=== PATIENT | female | born 1945 | race Caucasian/White ===

== ENCOUNTER 2021-08-26 18:17 | Observation (INO) | payer OTHER ==
[2021-08-26 19:10] VITALS: BMI 25.9
[2021-08-26] MEDS: DIPHENHYDRAMINE 50 MG/ML VIAL IV SCH (20:00)
[2021-08-26] MEDS: METOPROLOL TAR 50 MG TAB PO SCH (20:10)
[2021-08-26] MEDS: METHYLPREDNISOLONE 125 MG INJ IV SCH (20:10)
[2021-08-26] MEDS: HYDRALAZINE HCL 10 MG TABLET PO SCH (20:10)
[2021-08-26] MEDS: FAMOTIDINE 20 MG/2 ML VIAL IV SCH (20:11)
[2021-08-26 20:27] LABS: Absolute Lymphocytes (CBC) 1.5 K/uL (0.7-4.9); Basophils % 0.5 % (0-1.3); Hematocrit 40.8 % (36.0-45.0); Lymphocytes % 20.4 % (15.3-44.8); MPV 7.9 fL (7.6-11.3)
[2021-08-26 20:44] LABS: Albumin 3.6 g/dL (3.4-5.0); Magnesium 2.3 mg/dL (1.8-2.4); Potassium 3.8 mmol/L (3.5-5.1)
[2021-08-26 20:55] LABS: Bilirubin Total 0.4 mg/dL (0.2-1.0); Protein, Total 7.2 g/dL (6.4-8.2)
[2021-08-26 20:59] LABS: Thyroid Stimulating Hormone 4.19 uIU/mL (0.360-3.740)
[2021-08-27] MEDS ORDERED: AMLODIPINE 5 MG TAB PO ONE (00:43)
[2021-08-27] MEDS: DIPHENHYDRAMINE 50 MG/ML VIAL IV SCH ×4 (01:08→13:51)
[2021-08-27] MEDS: METHYLPREDNISOLONE 125 MG INJ IV SCH ×3 (06:00→12:00)
--- NOTE | 2021-08-27 08:42 | HP ---
Date of Admission: 08/26/2021 Chief Complaint: Rash, itching, and swelling of face. History Of Present Illness: This is a 76-year-old pleasant female patient, who went out of town for few days end of July and she came back home on August 15, 2021. Since she came, she noted that s he had some rash and itching over both arms and she also had rash over left frontal temporal area. S he went to see her field hockey and lacrosse coach in [place] who diagnosed her as having shingles and gave antivira l medication for 1 week, which she took it, but her rash and itching from both arms have not improved and meanwhile she started to have progressively getting worse rash over the face and now rash is cov ering entire face and her face has started to swell up to the extent that today she came into office with her with worsening of rash, itching, and facial swelling. She denies any sore throat. No trouble swallowing. No shortness of breath. No fever, chills, nausea, vomiting. No headache. E xtent of her facial swelling was so bad that her eyes are almost completely shut, except very small a cj of opening. Otherwise, her eyes are extremely swollen and shut. She has been taking Benadryl at home. After I saw her, she was admitted to the hospital for further evaluation and management of th is problem. Allergies: SHE IS ALLERGIC TO AMPICILLIN CAUSING RASH. Medications: List reviewed. Review of Systems: Dermatology: As mentioned above. All other systems reviewed and negative. Past Medical History: Significant for osteopenia, gastroesophageal reflux disease, hypertension, hyp erlipidemia, complete heart block and had a pacemaker for that in 2015. Past Surgical History: Cataract surgery, D and C. Family History: Multiple family members with pacemaker. Father with coronary artery disease. Mothe r, peripheral vascular disease. Sister with leukemia. Social History: Negative for smoking and alcohol use. Physical Examination: Vital Signs: Temperature 99.1, pulse 63, respiratory rate 18, blood pressure 179/85, oxygen saturati on 98%. Height 5 feet 7 inches, weight 166 pounds. General: Awake, alert, oriented, not in distress. HEENT: Head atraumatic, normocephalic. Conjunctivae nonerythematous. Sclerae white. Mouth, no thr ush or edema noted. Ears/Nose, no mass, lesion, discharge noted. Face examination change; the patie nt has significant swelling of entire face involving both eyelids and to the extent that her eyes are almost completely shut because of the swelling. Neck: Supple. No JVD, lymph nodes, bruit, thyromegaly noted. Lungs: Bilateral good equal air entry. Clear to auscultation. No rhonchi. No rales. Heart: Normal heart sounds, no murmur or gallop. Abdomen: Soft, bowel sounds normal. No guarding, rigidity, tenderness, mass, hepatosplenomegaly, dis tention, or bruit noted. Extremities: No leg edema. No calf tenderness. Skin: The patient has pink macular rash scattered over significant portion of both upper extremities and entire forehead. Lymphatics: No lymph node enlargement in neck, supraclavicular, infraclavicular region. Neuro: No focal neurological deficit. Chest: Unremarkable. External Genitalia: Deferred. Rectal: Deferred. Laboratory Data: COVID-19 test negative. Sodium 139, potassium 3.8, chloride 108, bicarb 25, BUN 18 , creatinine 0.65, glucose 94. Liver function tests unremarkable. TSH 4.19. White count 7.2, hemog lobin 13.9, platelets 203. Impression: 1.Allergic reaction. 2.Hypertension. 3.Hyperlipidemia. 4.Complete heart block. 5.Osteopenia. 6.Gastroesophageal reflux disease. Plan: Admit the patient to hospital for further evaluation and management of this problem. The joycelyn ent is appropriate for inpatient and is expected to spend 2 midnights in hospital. We will continue home medications per order. SCD was ordered for DVT prophylaxis. We will go ahead and start her on IV Pepcid, IV Benadryl, IV steroid medication. I will see her tomorrow for followup. I have advised the patient that once she recovers from this allergic reaction, she should definitely follow up with youth specialist for further allergy testing because she is actually not sure what further caused this allergic reaction at this point. MARCELA/MODL Voice ID: [id number]
[2021-08-27] MEDS ORDERED: VERAPAMIL SR 240 MG TABLET PO SCH (09:00)
[2021-08-27] MEDS: METOPROLOL TAR 50 MG TAB PO SCH (09:06)
[2021-08-27] MEDS: FAMOTIDINE 20 MG/2 ML VIAL IV SCH (09:07)
[2021-08-27] MEDS: HYDRALAZINE HCL 10 MG TABLET PO SCH (09:07)
[2021-08-27 11:17] VITALS: O2SAT 98
[2021-08-27 14:52] VITALS: BP 178/79; TEMP 97.6
--- NOTE | 2021-08-28 04:37 | DS ---
Date of Discharge: 08/27/2021 Disposition: Discharged to go home. Physical Examination: HEENT: Unremarkable, except swelling of the face and eyelids, but overall this is approximately 40% to 50% better compared to yesterday. Skin: Shows pink, diffusely scattered macular rash all over face in both upper extremities and it is better today than yesterday. There is no new area of rash. Lungs: Clear to auscultation. Heart: Heart sounds normal. Abdomen: Soft, bowel sounds normal. No guarding, rigidity, tenderness, or distention. Extremities: No leg edema. Discharge Medications And Instructions: 1.Continue all prior home medication. 2.Follow up at my office on Monday, which is 08/30/2021 at 9 a.m. 3.Take following medications;. a.Benadryl ayxf-wog-vwlfrzz tablet 25 mg take 1 tablet by mouth at bedtime and take 1 tablet by mout h 3 times a day as needed for itching. b.Take famotidine 20 mg 1 tablet by mouth 2 times a day and the patient has this medication at home. c.Prednisone 10 mg, patient to take 2 tablets by mouth 2 times a day for 4 days, then 2 tablets by m outh daily for 4 days, then 1 tablet by mouth daily for 4 days, then 1/2 tablet by mouth daily for 4 days, then stop. Take it with food. Laboratory Data: Upon admission yesterday, white count 7.2, hemoglobin 13.9, platelets 203. Sodium 139, potassium 3.8, chloride 108, bicarb 25, BUN 18, creatinine 0.65, glucose 94. Liver function matti ts unremarkable. TSH 4.19. Hospital Course: This is a 76-year-old female patient who went out of town to [place] and she was o ut in the open field with her and said that the wind was very strong. She really does not kn ow what she got exposed to, but she started to have rash and itching since that time. On August t, she saw her in service education teacher and was diagnosed as having shingles involving left forehead area. He r rash that she has is a diffuse rash all over her face, both upper extremities with lots of itching. She took the antiviral medication for 1 week, but rest of the rash that she has did not improve at all and over period of time it continued to get worse associated with increasing swelling of her face and eyelids. She came to see me yesterday after she was evaluated, she was admitted to the hospital with severe allergic reaction to the extent that her eyelids were swollen shut with very small slit- like opening in both eyelids; otherwise, due to extreme swelling both eyelids were completely shut. Face was significantly swollen also. She denied any shortness of breath. No trouble swallowing. Reina lorenzo was admitted to the hospital. She was started on IV steroid, IV Benadryl, and IV Pepcid. This mor margo when I saw her, she reports significant improvement. Her swelling is still present. Rash is st ill present, but significantly better compared to yesterday. She is tolerating diet very well and pl an is to possibly discharge her to go home this afternoon. We will continue IV steroid until that po int. She really does not know what she got exposed to so when she comes to see me next week we will go ahead and start outpatient referral process for her to see fitness specialist as she will need [facility] further evaluation and management by floral department specialist to see what she could be allergic to possib ly. All these details were discussed with her. Final Diagnoses: 1.Allergic reaction. 2.Hypertension. 3.Hyperlipidemia. 4.Complete heart block, status post pacemaker placement. 5.Osteopenia. 6.Gastroesophageal reflux disease. MARCELA/MODL Voice ID: [id number] Report ID: [id number]
--- OUTSIDE RECORDS SUMMARY | 2021-08-28 22:03 | XMS REPORT | Continuity of Care Document ---
:1945 Author Organization [facility] t Address [address] [place] [address] Care Team Providers Name Role Phone Mini Kiran Primary Care Physician Nurse, [place] Immunization Attending Clinician Unavailable Orlando Sierra DO Attending Clinician Problems This patient has no known problems. Allergies, Adverse Reactions, Alerts This patient has no known allergies or adverse reactions. Social History Social Habit Start Date Stop Date Quantity Comments Source Sex Assigned At [birth year] [facility] 00:00:00 00:00:00 [facility] Smoking Status Start Date Stop Date Source Unknown if ever smoked [facility] Medications This patient has no known medications. Immunizations Ordered Filled Immunization Date Status Comments Sourc e Immunization Name Name SARS-COV-2 COVID-19 2021-07-20 Completed [facility]FIZER VACCINE 00:00:00 [facility] SARS-COV-2 COVID-19 2020-12-29 Completed [facility]ive rs[facility] of PFIZER VACCINE 00:00:00 [facility] SARS-COV-2 COVID-19 2020-12-08 Completed [facility] of PFIZER VACCINE 00:00:00 [facility] Procedures Procedure Date / Time Performed Performing Clinician Nneka lorenzo SARS-COV-2 COVID-19 2021-07-20 13:57:18 Doctor Unassigned, No [facility] [place] VACCINE,0.3ML,IM Name [facility] (PFIZER) Encounters Start End Encounter Admission Attending Care Care Encounter Source Date/Time Date/Time Type Type Clinicians Facility Department ID 2021-07-20 2021-07-20 Imm/Inj Nurse, Adc Pob Immunization [facility] [id number] [facility] 08:54:45 08:56:06 Visit Jean Carlos Sierra [id number] [facility] [id number] Alexis Coonio [id number] Dc dical nal [address] Results This patient has no known results.
== END 2021-08-27 13:20 | disposition home or self-care (01) ==
LOC: INTOOBSV 18:17 → 2ND 18:17
PROVIDERS: ADMIT Internal Medicine; ATTEND Internal Medicine
DX: L27.0 Generalized skin eruption due to drugs and medicaments taken internally (principal); I44.2 Atrioventricular block, complete; K21.9 Gastro-esophageal reflux disease without esophagitis; I10 Essential (primary) hypertension; E78.5 Hyperlipidemia, unspecified; M85.80 Other specified disorders of bone density and structure, unspecified site; T50.905A Adverse effect of unspecified drugs, medicaments and biological substances, initial encounter; Z88.0 Allergy status to penicillin; Z95.0 Presence of cardiac pacemaker; Z20.822 Contact with and (suspected) exposure to COVID-19
CPT/HCPCS: 85025; 36415; 83735; 84443; 84439; 80053; U0003; J1200 ×4; J2930 ×5